=== PATIENT | male | born 2000 | race Caucasian/White ===

== ENCOUNTER 2019-06-10 17:25 | Emergency (ER) | payer OTHER ==
[2019-06-10] MEDS ORDERED: NORMAL SALINE 1000 ML 1,000 ML IV ONE ×2 (17:45→18:30)
[2019-06-10 17:50] LABS: ABSOLUTE LYMPHOCYTES (AUTO) 1.4 10^3/uL (0.5-4.7); ABSOLUTE MONOCYTES (AUTO) 0.4 10^3/uL (0.1-1.4); ABSOLUTE NEUT (AUTO) 2.1 10^3/uL (1.7-8.2); BASOPHILS % (AUTO) 0.3 % (0-2); HEMATOCRIT 37.5 % (37.9-51.0); HEMOGLOBIN 13.3 g/dL (13.5-17.0); LYMPHOCYTES % (AUTO) 35.9 % (13-45); MEAN CORPUSCULAR HEMOGLOBIN 31.5 pg (27.0-33.4); MEAN CORPUSCULAR HGB CONC 35.4 g/dL (32.0-36.0); MEAN CORPUSCULAR VOLUME 89 fl (80-97); MONOCYTES % (AUTO) 10.4 % (3-13); PLATELET COUNT 239 10^3/uL (150-450); RED BLOOD COUNT 4.22 10^6/uL (4.35-5.55); RED CELL DISTRIBUTION WIDTH 12.7 % (11.5-14.0); SEGMENTED NEUTROPHILS % (AUTO) 52.4 % (42-78); TOTAL CELLS COUNTED % (AUTO) 100 %
[2019-06-10 18:09] LABS: ALBUMIN 4.3 g/dL (3.7-5.6); ALCOHOL 13 mg/dL (NONE DETECTED); ALKALINE PHOSPHATASE 57 U/L (65-260); ANION GAP 10 (5-19); ASPARTATE AMINO TRANSFERASE 34 U/L (10-45); BILIRUBIN,TOTAL 0.7 mg/dL (0.2-1.3); BLOOD UREA NITROGEN 16 mg/dL (7-20); CALCIUM 9.2 mg/dL (8.4-10.2); CARBON DIOXIDE 28 mmol/L (22-30); CHLORIDE 101 mmol/L (98-107); GLUCOSE 145 mg/dL (75-110); POTASSIUM 3.7 mmol/L (3.6-5.0)
[2019-06-10 18:10] LABS: ACETAMINOPHEN < 10 ug/mL (10-30); SALICYLATE < 1.0 mg/dL (2.0-20.0)
--- NOTE | 2019-06-10 18:24 | ER Document Report ---
Entered by EDUARDO MEDINA SCRIBE 06/10/19 8621 Acting as scribe for:ELLE SIMENATL MD ED Substance Abuse / Acc. OD <CECILIA CHOUDHARY IV - Last Filed: 06/11/19 04:15> <ANEL LOUIS - Last Filed: 06/11/19 14:13> - General Mode of Arrival: Ambulatory Information source: Patient TRAVEL OUTSIDE OF THE [place] IN LAST 30 DAYS: No <ELLE SIMENTAL - Last Filed: 06/11/19 15:02> - General Chief Complaint: Overdose Stated Complaint: POSSIBLE OVERDOSE Time Seen by Provider: 06/10/19 17:34 Primary Care Provider: [facility] [Outside] - Follow up as needed [facility] [Outside] - Follow up in 3-5 days Notes: This 18 year old male patient presents to the emergency department today after snorting what he thought was "half of a Percocet 10" just prior to arrival. Patient states that after snorting it he began to feel funny, confused, his head became tingly, and he "overdosed". Patient states that the person he got the pill from he thinks snorted the other half so he tried to ask him what was in it. Patient states he tried to go in the house to ask him what else was in this drug and the person locked the door and would not answer him or let him in. Patient is tachycardic here with a heart rate into the 130s. (ELLE SIMENTAL) - Related Data Allergies/Adverse Reactions: No Known Allergies Allergy (Verified 06/10/19 17:42) Past Medical History - General Information source: Patient - Social History Smoking Status: Current Every Day Smoker Cigarette use (# per day): Yes Frequency of alcohol use: None Drug Abuse: Methamphetamine, Prescription drugs Lives with: Family Family History: Reviewed & Not Pertinent Patient has suicidal ideation: No Patient has homicidal ideation: No - Medical History Medical History: Negative Surgical Hx: Negative <ELLE SIMENTAL - Last Filed: 06/11/19 15:02> Review of Systems - Review of Systems Neurological/Psychological: See HPI, Other - Substance abuse, snorted what he thought was half of a percocet 10, and it made him "confused and not feel right" -: Yes All other systems reviewed and negative <ELLE SIMENTAL - Last Filed: 06/11/19 15:02> Physical Exam - Vital signs Interpretation: Normal - General General appearance: Appears well, Alert - HEENT Head: Normocephalic, Atraumatic Eyes: Normal Pupils: PERRL - Respiratory Respiratory status: No respiratory distress Chest status: Nontender Breath sounds: Normal Chest palpation: Normal - Cardiovascular Rhythm: Tachycardia - 130s Heart sounds: Normal auscultation Murmur: No - Abdominal Inspection: Normal Distension: No distension Bowel sounds: Normal Tenderness: Nontender Organomegaly: No organomegaly - Back Back: Normal, Nontender - Extremities General upper extremity: Normal inspection, Nontender, Normal color, Normal ROM, Normal temperature General lower extremity: Normal inspection, Nontender, Normal color, Normal ROM, Normal temperature, Normal weight bearing. No: Keisha's sign - Neurological Neuro grossly intact: Yes Cognition: Normal Orientation: AAOx4 [place] Coma Scale Eye Opening: Spontaneous [place] Coma Scale Verbal: Oriented [place] Coma Scale Motor: Obeys Commands Zoraida Coma Scale Total: 15 Speech: Normal - Psychological Associated symptoms: Other - Pressured speech - Skin Skin Temperature: Warm Skin Moisture: Dry Skin Color: Normal <ELLE SIMENTAL - Last Filed: 06/11/19 15:02> - Vital signs Vitals: Temp 98.7 F 06/10/19 17:25 Course - Laboratory Result Diagrams: 06/10/19 17:27 06/10/19 17:27 <CECILIA CHOUDHARY IV - Last Filed: 06/11/19 04:15> - Laboratory Result Diagrams: 06/10/19 17:27 06/10/19 17:27 - EKG Interpretation by Nv EKG shows normal: Sinus rhythm, [place], Intervals, QRS Complexes, ST-T Waves Rate: Tachycardia - 132 [place]/QRS: IVCD <ELLE SIMENTAL - Last Filed: 06/11/19 15:02> - Re-evaluation Re-evalutation: 06/11/19 04:15 During the course of the overnight shift, patient became more disruptive verbally and attempted repeatedly to leave the premises despite being obviously still under the influence of narcotic medication. This MD decided that it was in the patient's parents interest to put him on IVC papers and observe him in the emergency department until his mental status improves. (CECILIA CHOUDHARY IV) - Vital Signs Vital signs: Temp Pulse Resp BP Pulse Ox 98.7 F 12 118/70 97 06/10/19 17:25 06/11/19 11:01 06/11/19 11:01 06/11/19 11:01 - Laboratory Laboratory results interpreted by me: 06/10/19 06/10/19 06/11/19 17:27 17:27 01:48 RBC 4.22 L Hgb 13.3 L Hct 37.5 L Glucose 145 H Alkaline Phosphatase 57 L Salicylates < 1.0 L < 1.0 L Acetaminophen < 10 L < 10 L Discharge <CECILIA CHOUDHARY IV - Last Filed: 06/11/19 04:15> <ANEL LOUIS - Last Filed: 06/11/19 14:13> <ELLE SIMENTAL - Last Filed: 06/11/19 15:02> - Discharge Clinical Impression: Substance abuse, Tachycardia, Methamphetamine abuse, Marijuana abuse, Narcotic abuse, Benzodiazepine abuse Condition: Good Disposition: HOME, SELF-CARE Additional Instructions: You have been evaluated by both medical and behavioral health teams for accidental overdose and have been deemed appropriate for discharge. While in the emergency department you received the following services: Medical screening and assessment, nursing services, dietary services, pharmacological services, one-on-one counseling and/or psychotherapy, environmental services, and continuous observation by a patient safety glass installer. You have declined assistance for detox; resource information has been provided in case you change your mind. NARCOTIC / OPIOD ABUSE: Narcotics and opiods are pain-relieving drugs that are often abused. They are addicting. Narcotics cause euphoria, but it often takes increasing amounts to "feel good" and avoid withdrawal symptoms. Overdose of narcotics causes small pupils, coma, and decreased breathing. It's a common cause of . Purity of street narcotics is unpredictable. Injection of narcotics is risky for abscesses, endocarditis (heart infection), pneumonia, and AIDS. Withdrawal from narcotics causes goose bumps, watery mouth, sweating, nasal congestion, muscle aches, abdominal cramps, vomiting, and diarrhea. There's often restlessness and confusion. Treatment programs are available, but you must make the decision to quit. Medication (such as clonidine) can be prescribed to control the symptoms of withdrawal. AMPHETAMINE / METHAMPHETAMINE ABUSE: Amphetamines are addicting stimulants. Amphetamines overstimulate the nervous system and give a false feeling of power and mastery. These drugs may be obtained as prescription pills for weight loss, narcolepsy, or attention-deficit disorder. More often they're bought as an illegal street drug, methamphetamine (crank, crystal, speed). Using amphetamines repeatedly can lead to serious medical problems including malnutrition, severe depression, and paranoia. It can take increasing amounts to feel good. Eventually, there will be a "burn out." When you go off amphetamines there is a period of depression that may last for weeks or even months. High doses of amphetamines can cause seizures, confusion, hallucinations, delusions, high blood pressure, muscle damage, heart damage, or sudden . Many times these deadly complications occur even with "normal" doses. Injection of amphetamines is risky for developing abscesses, endocarditis (heart infection), pneumonia, and AIDS. Withdrawal from amphetamines often causes anxiety, depression, and drug cravings. Some users become paranoid and psychotic. There may be cramps, nausea, and vomiting. Many treatment programs are available, but you must make the decision to quit. Medication can be prescribed to control the symptoms of amphetamine toxicity (beta blockers or benzodiazepines). Withdrawal symptoms may require tranquilizers. OVERDOSE / INGESTION: You have taken more medication than you should have. After your evaluation and care, it is felt that your overdose is not likely to be harmful or of any significant consequences to you and you are being discharged. In the future, you should be careful not to take more medications than what is prescribed for you. Although your overdose does not seem to be of any danger to you at this time, if you develop any unusual or unexpected symptoms after your discharge, you should return to the Emergency Department immediately for re-evaluation. FOLLOW-UP CARE: If you have been referred to a physician for follow-up care, call the [facility] office for an appointment as you were instructed or within the next two days. If you experience worsening or a significant change in your symptoms, notify the physician immediately or return to the Emergency Department at any time for re-evaluation. Referrals: [facility] [Outside] - Follow up as needed [facility] [Outside] - Follow up in 3-5 days I personally performed the services described in the documentation, reviewed and edited the documentation which was dictated to the scribe in my presence, and it accurately records my words and actions.
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
[2019-06-10] MEDS ORDERED: LIDOCAINE 2% URO-JET 5 ML KIT MM ONE (22:53)
--- NOTE | 2019-06-10 23:21 | EKG REPORT ---
SEVERITY:- ABNORMAL ECG - SINUS TACHYCARDIA NONSPECIFIC INTRAVENTRICULAR CONDUCTION DELAY : Confirmed by: Tran Michaels 10-Jun-2019 23:21:12
[2019-06-11] MEDS ORDERED: DIPHENHYDRAMINE HCL 50 MG/ML VIAL IM ONE (00:09)
[2019-06-11] MEDS ORDERED: HALOPERIDOL LACTATE INJ 5 MG/1 ML VIAL IM ONE (00:09)
[2019-06-11] MEDS ORDERED: LORAZEPAM INJ 2 MG/1 ML VIAL IM ONE (00:10)
[2019-06-11] MEDS ORDERED: NALOXONE HCL INJ 2 MG/2 ML DISP.SYRIN ONE (00:54)
[2019-06-11] MEDS ORDERED: NALOXONE HCL INJ 2 MG/2 ML DISP.SYRIN IV ONE (01:33)
[2019-06-11 01:43] LABS: URINE BARBITURATES SCREEN NEGATIVE; URINE COCAINE SCREEN NEGATIVE; URINE METHADONE SCREEN NEGATIVE; URINE PHENCYCLIDINE SCREEN NEGATIVE
[2019-06-11 01:49] LABS: APPEARANCE,URINE CLEAR; BILIRUBIN,URINE NEGATIVE (NEGATIVE); COLOR,URINE YELLOW; GLUCOSE, URINE NEGATIVE (NEGATIVE); KETONES,URINE NEGATIVE (NEGATIVE); LEUKOCYTE ESTERASE,URINE NEGATIVE (NEGATIVE); NITRITE,URINE NEGATIVE (NEGATIVE); PROTEIN,URINE NEGATIVE (NEGATIVE); URINE SPECIFIC GRAVITY 1.015; UROBILINOGEN,URINE NEGATIVE mg/dL (<2.0)
[2019-06-11 02:23] LABS: URINE BENZODIAZEPINES SCREEN UNCONFIRMED POSITIVE; URINE MARIJUANA (THC) SCREEN UNCONFIRMED POSITIVE
[2019-06-11 02:43] LABS: ACETAMINOPHEN < 10 ug/mL (10-30); SALICYLATE < 1.0 mg/dL (2.0-20.0)
--- NOTE | 2019-06-11 14:13 | PSYCHOLOGICAL NOTE ---
Psych Note - Psych Note Date seen by psych provider: 06/11/19 Time seen by psych provider: 13:00 Psych Note: Reason for Re-Consult: IVC/ Substance abuse and intoxication Patient became verbally aggressive/belligerent and attempted to leave after the behavioral health team hours so attending evening yony placed the patient on 24 hour petition for evaluation due to the patient being under the influence. Clinician notes patient has a second chart: [id number] Check in conducted with patient: Patient is sleeping upon clinician entering the room. He is difficult to awaken, but eventually does and engaged with clinician appropriately. He continues to support his previous statements of using something that he thought was "Perc 10." He denies he was attempting to hurt himself. He disclosed that he is uninterested in assistance with detox and declined assistance with connecting to a provider for substance abuse treatment. Patient was just recently inpatient for substance abuse/ detox at [facility] and currently lives with his mothers that he reports requires him to take drug tests in order to continue living with her (it is unclear if they are random). Patient demonstrates organized and linear thought processes and normal conversational speech. Eye contact is fair, however, it is noted the patient was awoken and was trying to stay awake and engage with clinician. Impression/Plan: patient is recommended for rescind and is cleared from acute psychiatric services. Patient is no longer under the influence and is declining assistance with substance abuse treatment/ detox. Patient is demonstrating organized and linear thought processes and normal conversational speech. Unfortunately, this patient historically has poor insight, judgment and impulse control due to his substance abuse. Patient started using methamphetamines when only 13 years old. Patient was provided resources for substance abuse if he changes his mind. Dr. Holm was consulted on the care and management of this patient; attending physician is in agreement with recommendations and disposition.
[2019-06-11 15:02] VITALS: BP 106/59
== END 2019-06-11 15:17 | disposition home or self-care (01) ==
LOC: ER 17:25
DX: F19.10 Other psychoactive substance abuse, uncomplicated (principal); R00.0 Tachycardia, unspecified; F12.10 Cannabis abuse, uncomplicated; R20.0 Anesthesia of skin; F17.210 Nicotine dependence, cigarettes, uncomplicated
CPT/HCPCS: 93005; 99285; 96372; 96361; 96374; 36415; 80307 ×4; 82550; 85025; 80053; 81001; 84484; 93010; J1200; J1630; J2060; J2310; J7030; J3490